=== PATIENT | female | born 1940 | race Caucasian/White ===

== ENCOUNTER 2021-05-26 13:59 | Inpatient (IN) | payer MEDICARE ==
[2021-05-26 14:25] LABS: Actual Bicarbonate (HCO3a) 24.5 mEq/L (22-28); Analyzer IN Cardio ER; Base Excess (BEa) 1.7 mEq/L (-2.0 to +3.0); CO2 Tension 33.4 mmHg (35.0-45.0); Calcium, Ionized (arterial) 1.22 mmol/L (1.12-1.30); Carboxyhemoglobin (COHb) 2.5 gm% (0.0-3.0); Hemoglobin (Hb) 15.2 g/dL (12.0-16.0); Potassium - ABG Lab 4.68 mmol/L (3.70-5.30); pH, Arterial 7.48 (7.35-7.45)
[2021-05-26 14:26] LABS: Puncture Site RRA
[2021-05-26 15:14] LABS: Hemoglobin 14.9 g/dL (12.0-16.0); Mean Corpuscular HGB CONC 33.1 g/dL (32.0-36.0); Mean Corpuscular Hemoglobin 30.3 pg (27.0-31.0); Mean Corpuscular Volume 91.5 fL (78.0-98.0); Red Blood Cell (RBC) Count 4.93 mill/uL (4.20-5.40)
[2021-05-26 15:34] LABS: ALT (SGPT) 24 U/L (8-55); AST (SGOT) 106 U/L (5-34); Albumin 3.1 g/dL (3.4-4.8); Alkaline Phosphatase 56 U/L (40-110); Anion Gap 21 mmol/L (10-20); BUN (Urea Nitrogen) 77 mg/dL (9.8-20.1); Bilirubin, Total 1.6 mg/dL (0.2-1.2); CK (CPK) 173 U/L (29-168); Calc. Creatinine Clearance 0 mL/min (70-130); Calcium 8.3 mg/dL (7.8-10.44); Carbon Dioxide 23 mmol/L (23-31); Chloride 108 mmol/L (98-107); Globulin 3.4 g/dL (2.4-3.5); Glucose 139 mg/dL (83-110); Potassium 5.6 mmol/L (3.5-5.1); Protein, Total 6.5 g/dL (5.8-8.1); Sodium 146 mmol/L (136-145)
[2021-05-26 15:37] LABS: Anisocytosis SLIGHT = 6-15 cells (100X) (0-5/hpf); Band 30 % (5-11); Eosinophils 1 % (0-10); Lymphocytes 2 % (21-51); MDiff Complete? YES; Mean Platelet Volume 9.9 fL (7.4-10.4); Monocytes 3 % (0-10); Neutrophil 60 % (42-75); Nucleated RBC 12 % (0); Platelet Count 78 thou/uL (130-400); Platelet Morphology Comment Appears Decreased; Polychromasia MODERATE = 3-4 cells (100X) (0-2/hpf); Reactive Lymphocytes 4 % (0-10); White Blood Cell (WBC) Count 16.3 thou/uL (4.8-10.8)
[2021-05-26 15:50] LABS: CKMB 1.6 ng/mL (0-6.6)
[2021-05-26] MEDS ORDERED: Senokot S 8.6-50 MG TAB PO PRN (17:33)
[2021-05-26] MEDS ORDERED: Acetaminophen 325 MG TAB PO PRN (17:33)
[2021-05-26] MEDS ORDERED: Ondansetron PF 4 MG/2 ML Vial IVP PRN (17:33)
[2021-05-26] MEDS ORDERED: Dexamethasone 10 MG/ML VIAL ONE (18:07)
[2021-05-26] MEDS ORDERED: Albuterol 200 PUFF (6.7GM INHALER) INH PRN (18:26)
[2021-05-26 18:42] LABS: Troponin I 0.165 ng/mL (< 0.028)
[2021-05-26] MEDS ORDERED: Sodium Chloride 0.9% (PF) 10 ML VIAL FS PRN (18:45)
[2021-05-26] MEDS ORDERED: Enoxaparin Sodium 100 MG/ML SYRINGE SC SCH (19:30)
[2021-05-26] MEDS ORDERED: hydrALAZINE 20 MG/ML VIAL SLOW IVP SCH (21:30)
[2021-05-26] MEDS ORDERED: hydrALAZINE 20 MG/ML VIAL ONE (21:50)
[2021-05-26] MEDS: Dexamethasone 10 MG/ML VIAL SLOW IVP SCH (23:14)
[2021-05-26 23:17] LABS: SARS-CoV-2 NAA Rapid Test DETECTED (NotDetected)
[2021-05-26] MEDS ORDERED: cefTRIAXone\\ROCEPHIN 1 GM VIAL ONE (23:22)
[2021-05-26] MEDS ORDERED: Azithromycin 500 MG VIAL ONE (23:22)
[2021-05-26] MEDS ORDERED: Pantoprazole 40 MG VIAL ONE (23:22)
[2021-05-26] MEDS ORDERED: Enoxaparin Sodium 40 MG/0.4 ML SYRINGE ONE (23:22)
[2021-05-26] MEDS: cefTRIAXone\\ROCEPHIN 1 GM in Sodium Chloride 0.9% 100 ML IVPB SCH (23:25)
[2021-05-26] MEDS: Pantoprazole 40 MG VIAL IVP SCH (23:25)
[2021-05-26] MEDS: Azithromycin 500 MG in Sodium Chloride 0.9% 250 ML 250 ML IVPB SCH (23:25)
[2021-05-26 23:26] LABS: Anion Gap 18 mmol/L (10-20); BUN (Urea Nitrogen) 82 mg/dL (9.8-20.1); Calc. Creatinine Clearance 0 mL/min (70-130); Calcium 8.2 mg/dL (7.8-10.44); Carbon Dioxide 23 mmol/L (23-31); Chloride 110 mmol/L (98-107); Glucose 185 mg/dL (83-110); Potassium 4.9 mmol/L (3.5-5.1); Sodium 146 mmol/L (136-145)
[2021-05-26 23:30] LABS: Troponin I 0.168 ng/mL (< 0.028)
[2021-05-26] MEDS ORDERED: Enoxaparin Sodium 100 MG/ML SYRINGE ONE (23:40)
[2021-05-26] MEDS: Sodium Chloride 0.9% 1,000 ML IV SCH (23:45)
[2021-05-27 03:26] VITALS: BMI 28.3
[2021-05-27 04:43] LABS: ALT (SGPT) 37 U/L (8-55); AST (SGOT) 82 U/L (5-34); Albumin 2.6 g/dL (3.4-4.8); Alkaline Phosphatase 49 U/L (40-110); Anion Gap 18 mmol/L (10-20); BUN (Urea Nitrogen) 92 mg/dL (9.8-20.1); Bilirubin, Total 1.3 mg/dL (0.2-1.2); Calc. Creatinine Clearance 13 mL/min (70-130); Calcium 7.7 mg/dL (7.8-10.44); Carbon Dioxide 21 mmol/L (23-31); Chloride 113 mmol/L (98-107); Globulin 2.9 g/dL (2.4-3.5); Glucose 178 mg/dL (83-110); Protein, Total 5.5 g/dL (5.8-8.1); Sodium 147 mmol/L (136-145)
[2021-05-27 06:08] LABS: Band 14 % (5-11); Hemoglobin 13.7 g/dL (12.0-16.0); Lymphocytes 4 % (21-51); MDiff Complete? YES; Mean Corpuscular HGB CONC 33.2 g/dL (32.0-36.0); Mean Corpuscular Hemoglobin 30.5 pg (27.0-31.0); Mean Corpuscular Volume 91.7 fL (78.0-98.0); Mean Platelet Volume 6.9 fL (7.4-10.4); Monocytes 2 % (0-10); Myelocyte 1 % (0-0); Neutrophil 79 % (42-75); Platelet Count 61 thou/uL (130-400); Platelet Morphology Comment Appears Decreased; Polychromasia SLIGHT = 2-3 cells (100X) (0-2/hpf); RBC Distribution Width 14.8 % (11.5-14.5); Schistocytes SLIGHT = 2-5 cells (100X) (0-1/hpf); White Blood Cell (WBC) Count 19.8 thou/uL (4.8-10.8)
[2021-05-27] MEDS: Dexamethasone 10 MG/ML VIAL SLOW IVP SCH ×2 (07:22→19:19)
[2021-05-27] MEDS: Sodium Chloride 0.9% 1,000 ML IV SCH (08:21)
[2021-05-27] MEDS ORDERED: Pantoprazole 40 MG VIAL IVP SCH (09:00)
[2021-05-27] MEDS ORDERED: Sodium Bicarbonate 50 MEQ in Dextrose 5% in Water 1,000 ML IV SCH ×2 (13:30→17:57)
[2021-05-27 15:05] LABS: Bacteria/HPF 4+ HPF (None Seen); Bilirubin Negative (Negative); Blood, Urine 2+ (Negative); Clarity Extra Turbid (Clear); Glucose, Urine (Dipstick) Normal (Negative); Ketone, Urine Negative (Negative); Leukocyte 500 Leu/uL (Negative); Nitrite 1+ (Negative); Protein, Urine (Dipstick) 300 mg/dL (Neg-Trace); RBC/HPF Greater than 50 HPF (0-3); Specific Gravity, Urine 1.012 (1.002-1.036); Squamous Epithelial 0-3 HPF (0-3); Urobilinogen Normal mg/dL (Less than 2); WBC/HPF Greater than 50 HPF (0-3)
[2021-05-27 15:09] LABS: Urine Culture Reflex Yes Yes
[2021-05-27 15:20] LABS: Creatinine, Urine Less than 20.00 mg/dL (47-110); Sodium, Urine 121 mmol/L (Not Available); Urea Nitrogen, Random Urine 107 mg/dl
[2021-05-27 15:34] LABS: Anion Gap 17 mmol/L (10-20); BUN (Urea Nitrogen) 96 mg/dL (9.8-20.1); Calc. Creatinine Clearance 10 mL/min (70-130); Calcium 7.4 mg/dL (7.8-10.44); Carbon Dioxide 22 mmol/L (23-31); Chloride 113 mmol/L (98-107); Glucose 199 mg/dL (83-110); Potassium 5.1 mmol/L (3.5-5.1); Sodium 147 mmol/L (136-145)
[2021-05-27 16:52] LABS: Protein, Urine Random Quant 927 mg/dL (1-14)
[2021-05-27] MEDS ORDERED: Non-Formulary Item 1 EACH (Tiotropium Bromide [Spiriva] 18 MCG Cap.W.Dev) IH PRN (18:09)
[2021-05-27] MEDS: Aspirin 81 mg Enteric Coated Tablet PO SCH (19:19)
[2021-05-27] MEDS: cefTRIAXone\\ROCEPHIN 1 GM in Sodium Chloride 0.9% 100 ML IVPB SCH (20:11)
[2021-05-27] MEDS: Azithromycin 500 MG in Sodium Chloride 0.9% 250 ML 250 ML IVPB SCH (20:11)
[2021-05-27] MEDS: Pantoprazole 40 MG VIAL IVP SCH (20:12)
[2021-05-27 22:53] LABS: Albumin 2.5 g/dL (3.4-4.8); Anion Gap 18 mmol/L (10-20); BUN (Urea Nitrogen) 99 mg/dL (9.8-20.1); BUN/Creatinine Ratio 18.89; Calc. Creatinine Clearance 10 mL/min (70-130); Carbon Dioxide 22 mmol/L (23-31); Chloride 109 mmol/L (98-107); Glucose 279 mg/dL (83-110); Phosphorus 4.5 mg/dL (2.3-4.7); Potassium 4.9 mmol/L (3.5-5.1); Sodium 144 mmol/L (136-145)
[2021-05-28 04:20] LABS: Hemoglobin 12.4 g/dL (12.0-16.0); Mean Corpuscular HGB CONC 31.6 g/dL (32.0-36.0); Mean Corpuscular Hemoglobin 29.1 pg (27.0-31.0); Mean Corpuscular Volume 92.1 fL (78.0-98.0); Mean Platelet Volume 8.2 fL (7.4-10.4); Platelet Count 61 thou/uL (130-400); RBC Distribution Width 15.3 % (11.5-14.5); Red Blood Cell (RBC) Count 4.28 mill/uL (4.20-5.40); White Blood Cell (WBC) Count 17.8 thou/uL (4.8-10.8)
[2021-05-28 04:32] LABS: ALT (SGPT) 39 U/L (8-55); AST (SGOT) 51 U/L (5-34); Albumin 2.7 g/dL (3.4-4.8); Alkaline Phosphatase 45 U/L (40-110); Anion Gap 18 mmol/L (10-20); BUN (Urea Nitrogen) 103 mg/dL (9.8-20.1); Bilirubin, Total 0.8 mg/dL (0.2-1.2); Calc. Creatinine Clearance 9 mL/min (70-130); Calcium 7.1 mg/dL (7.8-10.44); Carbon Dioxide 21 mmol/L (23-31); Chloride 105 mmol/L (98-107); Globulin 2.7 g/dL (2.4-3.5); Glucose 297 mg/dL (83-110); Potassium 4.5 mmol/L (3.5-5.1); Protein, Total 5.4 g/dL (5.8-8.1); Sodium 139 mmol/L (136-145)
[2021-05-28] MEDS: Levothyroxine Sodium 112 MCG TAB PO SCH (04:56)
[2021-05-28] MEDS: Levothyroxine Sodium 25 MCG TAB PO SCH (04:57)
[2021-05-28] MEDS ORDERED: Sodium Bicarbonate 150 MEQ in Dextrose 5% in Water 1,000 ML IV SCH (05:00)
[2021-05-28 05:44] LABS: Anisocytosis SLIGHT = 6-15 cells (100X) (0-5/hpf); Band 10 % (5-11); Lymphocytes 3 % (21-51); MDiff Complete? YES; Monocytes 4 % (0-10); Neutrophil 83 % (42-75); Platelet Morphology Comment Appears Decreased; Polychromasia SLIGHT = 2-3 cells (100X) (0-2/hpf)
[2021-05-28] MEDS: Dexamethasone 10 MG/ML VIAL SLOW IVP SCH ×2 (07:54→17:04)
[2021-05-28] MEDS: Atorvastatin Calcium 10 MG TAB PO SCH (07:55)
[2021-05-28] MEDS: Aspirin 81 mg Enteric Coated Tablet PO SCH (07:55)
[2021-05-28] MEDS ORDERED: Lantus 1000 UNITS/10 ML VIAL SC SCH ×2 (10:45→21:00)
[2021-05-28 17:56] LABS: Albumin 2.5 g/dL (3.4-4.8); Anion Gap 18 mmol/L (10-20); BUN (Urea Nitrogen) 109 mg/dL (9.8-20.1); BUN/Creatinine Ratio 17.84; Calc. Creatinine Clearance 8 mL/min (70-130); Carbon Dioxide 24 mmol/L (23-31); Chloride 102 mmol/L (98-107); Glucose 257 mg/dL (83-110); Phosphorus 4.6 mg/dL (2.3-4.7); Potassium 4.6 mmol/L (3.5-5.1); Sodium 139 mmol/L (136-145)
[2021-05-28] MEDS: cefTRIAXone\\ROCEPHIN 1 GM in Sodium Chloride 0.9% 100 ML IVPB SCH (19:57)
[2021-05-28] MEDS: Pantoprazole 40 MG VIAL IVP SCH (20:00)
[2021-05-28] MEDS: Azithromycin 500 MG in Sodium Chloride 0.9% 250 ML 250 ML IVPB SCH (20:01)
[2021-05-29 04:21] LABS: ALT (SGPT) 31 U/L (8-55); AST (SGOT) 51 U/L (5-34); Albumin 2.6 g/dL (3.4-4.8); Alkaline Phosphatase 45 U/L (40-110); Anion Gap 19 mmol/L (10-20); Calc. Creatinine Clearance 8 mL/min (70-130); Carbon Dioxide 24 mmol/L (23-31); Chloride 102 mmol/L (98-107); Globulin 2.7 g/dL (2.4-3.5); Glucose 177 mg/dL (83-110); Magnesium 2.6 mg/dL (1.6-2.6); Protein, Total 5.3 g/dL (5.8-8.1); Sodium 140 mmol/L (136-145)
[2021-05-29 04:27] LABS: Band 5 % (5-11); Hemoglobin 12.5 g/dL (12.0-16.0); Lymphocytes 7 % (21-51); MDiff Complete? YES; Mean Corpuscular HGB CONC 33.2 g/dL (32.0-36.0); Mean Corpuscular Volume 90.5 fL (78.0-98.0); Mean Platelet Volume 10.9 fL (7.4-10.4); Monocytes 11 % (0-10); Neutrophil 77 % (42-75); Nucleated RBC 1 % (0); Platelet Count 49 thou/uL (130-400); Platelet Morphology Comment Appears Decreased; RBC Distribution Width 16.1 % (11.5-14.5); RBC Morphology Normal; Red Blood Cell (RBC) Count 4.17 mill/uL (4.20-5.40)
[2021-05-29 04:33] LABS: BUN (Urea Nitrogen) 113 mg/dL (9.8-20.1)
[2021-05-29] MEDS: Levothyroxine Sodium 112 MCG TAB PO SCH (05:38)
[2021-05-29] MEDS: Levothyroxine Sodium 25 MCG TAB PO SCH (05:38)
[2021-05-29] MEDS: Dexamethasone 10 MG/ML VIAL SLOW IVP SCH ×3 (05:38→17:52)
[2021-05-29] MEDS: Lantus 1000 UNITS/10 ML VIAL SC SCH ×2 (08:00→20:42)
[2021-05-29] MEDS: Aspirin 81 mg Enteric Coated Tablet PO SCH (08:07)
[2021-05-29] MEDS: Atorvastatin Calcium 10 MG TAB PO SCH (08:07)
[2021-05-29] MEDS: Albumin 25% 25 GM/100 ML BOT IVPB SCH ×3 (10:23→22:18)
[2021-05-29] MEDS: Sodium Bicarbonate 50 MEQ in Sodium Chloride 0.45% 1,000 ML IV SCH ×2 (10:33→19:02)
[2021-05-29 19:19] LABS: Urine Total Volume 35 mL (250-2400)
[2021-05-29] MEDS: cefTRIAXone\\ROCEPHIN 1 GM in Sodium Chloride 0.9% 100 ML IVPB SCH (19:49)
[2021-05-29 20:00] LABS: Protein - 24 Hr 113 mg/24 hr (Less than 300); Protein, Urine 323 mg/dL (1-14)
[2021-05-29] MEDS: Azithromycin 500 MG in Sodium Chloride 0.9% 250 ML 250 ML IVPB SCH (20:42)
[2021-05-29] MEDS: Pantoprazole 40 MG VIAL IVP SCH (20:42)
[2021-05-30] MEDS: Sodium Bicarbonate 50 MEQ in Sodium Chloride 0.45% 1,000 ML IV SCH (02:03)
[2021-05-30] MEDS: Dexamethasone 10 MG/ML VIAL SLOW IVP SCH ×2 (06:12→17:46)
[2021-05-30] MEDS: Levothyroxine Sodium 25 MCG TAB PO SCH (06:12)
[2021-05-30] MEDS: Levothyroxine Sodium 112 MCG TAB PO SCH (06:12)
[2021-05-30 06:23] LABS: Platelet Count 39 thou/uL (130-400)
[2021-05-30 06:32] LABS: INR-International Normal Ratio 1.7; Prothrombin Time 20.1 sec (12.0-14.7)
[2021-05-30 06:37] LABS: FSP-Qualitative ABNORMAL (Normal); FSP-Semiquantitative >=160 & <320 mcg/mL (Less than 5)
[2021-05-30 06:43] LABS: ALT (SGPT) 28 U/L (8-55); AST (SGOT) 42 U/L (5-34); Albumin 3.3 g/dL (3.4-4.8); Alkaline Phosphatase 36 U/L (40-110); Anion Gap 21 mmol/L (10-20); Bilirubin, Total 1.1 mg/dL (0.2-1.2); Calc. Creatinine Clearance 7 mL/min (70-130); Calcium 6.6 mg/dL (7.8-10.44); Carbon Dioxide 23 mmol/L (23-31); Chloride 100 mmol/L (98-107); Globulin 2.2 g/dL (2.4-3.5); Glucose 190 mg/dL (83-110); Magnesium 2.6 mg/dL (1.6-2.6); Potassium 4.9 mmol/L (3.5-5.1); Protein, Total 5.5 g/dL (5.8-8.1); Sodium 139 mmol/L (136-145)
[2021-05-30 06:45] LABS: Fibrinogen 72 mg/dL (253-463)
[2021-05-30 06:47] LABS: Anisocytosis SLIGHT = 6-15 cells (100X) (0-5/hpf); Band 4 % (5-11); Bite Cells SLIGHT = 2-5 cells (100X) (0-1/hpf); Hemoglobin 11.4 g/dL (12.0-16.0); Lymphocytes 8 % (21-51); MDiff Complete? YES; Mean Corpuscular HGB CONC 33.8 g/dL (32.0-36.0); Mean Corpuscular Volume 91.8 fL (78.0-98.0); Mean Platelet Volume 12.7 fL (7.4-10.4); Metamyelocyte 1 % (0-0); Monocytes 5 % (0-10); Myelocyte 2 % (0-0); Neutrophil 80 % (42-75); Nucleated RBC 1 % (0); Platelet Count 37 thou/uL (130-400); Platelet Morphology Comment Appears Decreased; RBC Distribution Width 17.3 % (11.5-14.5); Red Blood Cell (RBC) Count 3.67 mill/uL (4.20-5.40); Schistocytes SLIGHT = 2-5 cells (100X) (0-1/hpf); Spherocytes SLIGHT = 1-5 cells (100X) (None Seen)
[2021-05-30 06:51] LABS: D-Dimer Test Greater than 20.00 *mcg/mL (0.27-0.43)
[2021-05-30 06:54] LABS: BUN (Urea Nitrogen) 125 mg/dL (9.8-20.1)
[2021-05-30] MEDS: Aspirin 81 mg Enteric Coated Tablet PO SCH (09:12)
[2021-05-30] MEDS: Atorvastatin Calcium 10 MG TAB PO SCH (09:13)
[2021-05-30] MEDS: Lantus 1000 UNITS/10 ML VIAL SC SCH ×2 (09:13→21:50)
[2021-05-30] MEDS ORDERED: Heparin 10,000 UNITS/ 10 ML VIAL ONE (09:27)
[2021-05-30] MEDS ORDERED: Lidocaine 1% w/Epinephrine 1:100K 20 ML VIAL ONE (09:31)
[2021-05-30] MEDS ORDERED: hydrALAZINE 20 MG/ML VIAL SLOW IVP PRN (12:01)
[2021-05-30] MEDS ORDERED: Carvedilol 25 MG TAB PO SCH ×2 (12:45→21:00)
[2021-05-30 12:46] VITALS: BP 189/88
[2021-05-30 13:12] LABS: HBSAB Concentration Less than 8.00 mIU/mL; Hep B Core Total Ab Non-Reactive (NonReactive); Hep B Core Total Index 0.07 S/CO (0-0.79); Hep B Surf AB Non-Reactive (NonReactive); Hep B Surf Ag Non-Reactive S/CO (NonReactive); Hep C IgG Ab Non-Reactive (NonReactive)
[2021-05-30] MEDS ORDERED: Albumin 25% 200 ML ONE (14:58)
[2021-05-30] MEDS ORDERED: Albumin 25% 25 GM/100 ML BOT IVPB SCH ×2 (16:00→18:15)
[2021-05-30] MEDS: Pantoprazole 40 MG VIAL IVP SCH (19:59)
[2021-05-30] MEDS: cefTRIAXone\\ROCEPHIN 1 GM in Sodium Chloride 0.9% 100 ML IVPB SCH (19:59)
[2021-05-30] MEDS: Azithromycin 500 MG in Sodium Chloride 0.9% 250 ML 250 ML IVPB SCH (21:48)
[2021-05-30 22:30] LABS: Phosphorus 7.9 mg/dL (2.3-4.7)
[2021-05-31] MEDS: Levothyroxine Sodium 112 MCG TAB PO SCH (05:32)
[2021-05-31] MEDS: Levothyroxine Sodium 25 MCG TAB PO SCH (05:32)
[2021-05-31] MEDS: Dexamethasone 10 MG/ML VIAL SLOW IVP SCH ×2 (05:33→18:21)
[2021-05-31] MEDS ORDERED: Sodium Chloride 0.9% 1,000 ML IV SCH (08:45)
[2021-05-31 09:31] LABS: Prothrombin Time 23.1 sec (12.0-14.7)
[2021-05-31 09:47] LABS: Mean Corpuscular HGB CONC 34.8 g/dL (32.0-36.0); Mean Corpuscular Hemoglobin 31.7 pg (27.0-31.0); Mean Platelet Volume 8.6 fL (7.4-10.4); Platelet Count 52 thou/uL (130-400); RBC Distribution Width 18.3 % (11.5-14.5); Red Blood Cell (RBC) Count 1.58 mill/uL (4.20-5.40); White Blood Cell (WBC) Count 13.6 thou/uL (4.8-10.8)
[2021-05-31] MEDS ORDERED: Albumin 25% 25 GM/100 ML BOT IVPB SCH (10:00)
[2021-05-31] MEDS: Atorvastatin Calcium 10 MG TAB PO SCH (10:04)
[2021-05-31 10:25] LABS: ALT (SGPT) 17 U/L (8-55); AST (SGOT) 20 U/L (5-34); Albumin 3.7 g/dL (3.4-4.8); Alkaline Phosphatase 19 U/L (40-110); Anion Gap 23 mmol/L (10-20); Bilirubin, Total 0.7 mg/dL (0.2-1.2); Calc. Creatinine Clearance 7 mL/min (70-130); Calcium 6.6 mg/dL (7.8-10.44); Carbon Dioxide 22 mmol/L (23-31); Chloride 103 mmol/L (98-107); Globulin 1.4 g/dL (2.4-3.5); Glucose 180 mg/dL (83-110); Magnesium 2.7 mg/dL (1.6-2.6); Phosphorus 8.2 mg/dL (2.3-4.7); Potassium 5.4 mmol/L (3.5-5.1); Protein, Total 5.1 g/dL (5.8-8.1); Sodium 143 mmol/L (136-145)
[2021-05-31 10:37] LABS: BUN (Urea Nitrogen) 142 mg/dL (9.8-20.1)
[2021-05-31] MEDS: Lantus 1000 UNITS/10 ML VIAL SC SCH ×2 (12:52→21:38)
[2021-05-31] MEDS ORDERED: Dextrose 50% Abboject 50 ML SYRINGE SLOW IVP STA (15:06)
[2021-05-31] MEDS ORDERED: Insulin Regular 300 UNITS/3 ML VIAL IVP STA (15:06)
[2021-05-31 19:56] LABS: Hemoglobin 5.5 g/dL (12.0-16.0); Platelet Count 62 thou/uL (130-400)
[2021-05-31] MEDS: cefTRIAXone\\ROCEPHIN 1 GM in Sodium Chloride 0.9% 100 ML IVPB SCH (21:23)
[2021-05-31] MEDS: Pantoprazole 40 MG VIAL IVP SCH (21:24)
[2021-06-01 00:55] VITALS: TEMP 98.1
[2021-06-01 03:02] LABS: Hemoglobin 7.6 g/dL (12.0-16.0); Mean Corpuscular Hemoglobin 32.2 pg (27.0-31.0); Mean Corpuscular Volume 89.4 fL (78.0-98.0); Mean Platelet Volume 11.9 fL (7.4-10.4); Platelet Count 80 thou/uL (130-400); RBC Distribution Width 14.8 % (11.5-14.5); Red Blood Cell (RBC) Count 2.36 mill/uL (4.20-5.40); White Blood Cell (WBC) Count 16.4 thou/uL (4.8-10.8)
[2021-06-01 03:20] LABS: ALT (SGPT) 26 U/L (8-55); AST (SGOT) 25 U/L (5-34); Albumin 3.8 g/dL (3.4-4.8); Alkaline Phosphatase 30 U/L (40-110); Anion Gap 25 mmol/L (10-20); Bilirubin, Total 0.7 mg/dL (0.2-1.2); Calc. Creatinine Clearance 7 mL/min (70-130); Calcium 6.5 mg/dL (7.8-10.44); Carbon Dioxide 23 mmol/L (23-31); Chloride 104 mmol/L (98-107); Globulin 1.9 g/dL (2.4-3.5); Glucose 212 mg/dL (83-110); Protein, Total 5.7 g/dL (5.8-8.1); Sodium 147 mmol/L (136-145)
[2021-06-01 03:24] LABS: Anisocytosis SLIGHT = 6-15 cells (100X) (0-5/hpf); Band 2 % (5-11); Lymphocytes 9 % (21-51); MDiff Complete? YES; Monocytes 5 % (0-10); Myelocyte 2 % (0-0); Neutrophil 79 % (42-75); Platelet Morphology Comment Appears Decreased; Polychromasia SLIGHT = 2-3 cells (100X) (0-2/hpf); Reactive Lymphocytes 3 % (0-10)
[2021-06-01 03:33] LABS: BUN (Urea Nitrogen) 152 mg/dL (9.8-20.1)
[2021-06-01] MEDS ORDERED: Azithromycin 500 MG in Sodium Chloride 0.9% 250 ML 250 ML IVPB SCH (04:00)
[2021-06-01] MEDS: Azithromycin 500 MG in Sodium Chloride 0.9% 250 ML 250 ML IVPB SCH (05:08)
[2021-06-01] MEDS: Dexamethasone 10 MG/ML VIAL SLOW IVP SCH (05:47)
[2021-06-01 14:37] LABS: Albumin, PEP 24hr Ur 63.1 % (NOT ESTAB.); Alpha-1-Globulin, PEP 24h Ur 4.3 % (NOT ESTAB.); Alpha-2-Globulin, PEP 24h Ur 7.3 % (NOT ESTAB.); Beta Globulin, PEP 24h Ur 16.1 % (NOT ESTAB.); Gamma Globulin, PEP 24h Ur 9.2 % (NOT ESTAB.); M-Spike,% PEP 24hr Ur Not Observed % (Not Observed); Protein, PEP 24hr calculated 103 mg/24 hr (30-150); Protein, Urine 293.5 mg/dL (Not Estab.)
== END 2021-06-01 11:47 | disposition expired | DRG 871 ==
LOC: SUATTDRO 13:59 → ERS 13:59 → ERHOLD 17:06 → IMCU/EMU 05-27 02:26
PROVIDERS: ADMIT Internal Medicine; ATTEND Internal Medicine
PROC: 8E0ZXY6 Isolation (ICD-10-PCS; principal; 2021-05-26)
PROC: 3E0333Z Introduction of Anti-inflammatory into Peripheral Vein, Percutaneous Approach (ICD-10-PCS; 2021-05-26)
PROC: 5A09457 Assistance with Respiratory Ventilation, 24-96 Consecutive Hours, Continuous Positive Airway Pressure (ICD-10-PCS; 2021-05-26)
PROC: 06HY33Z Insertion of Infusion Device into Lower Vein, Percutaneous Approach (ICD-10-PCS; 2021-05-30)
PROC: 5A1D70Z Performance of Urinary Filtration, Intermittent, Less than 6 Hours Per Day (ICD-10-PCS; 2021-05-30)
PROC: 30233R1 Transfusion of Nonautologous Platelets into Peripheral Vein, Percutaneous Approach (ICD-10-PCS; 2021-05-30)
PROC: 30233L1 Transfusion of Nonautologous Fresh Plasma into Peripheral Vein, Percutaneous Approach (ICD-10-PCS; 2021-05-31)
PROC: 30233N1 Transfusion of Nonautologous Red Blood Cells into Peripheral Vein, Percutaneous Approach (ICD-10-PCS; 2021-05-31)
PROC: 30233K1 Transfusion of Nonautologous Frozen Plasma into Peripheral Vein, Percutaneous Approach (ICD-10-PCS; 2021-05-31)
DX: A41.89 Other specified sepsis (principal); U07.1 COVID-19; J96.01 Acute respiratory failure with hypoxia; J12.82 Pneumonia due to coronavirus disease 2019; J15.9 Unspecified bacterial pneumonia; N17.0 Acute kidney failure with tubular necrosis; J44.0 Chronic obstructive pulmonary disease with (acute) lower respiratory infection; E87.1 Hypo-osmolality and hyponatremia; I24.8 Other forms of acute ischemic heart disease; E87.2 Acidosis; D62 Acute posthemorrhagic anemia; T82.838A Hemorrhage due to vascular prosthetic devices, implants and grafts, initial encounter; Z51.5 Encounter for palliative care; Z66 Do not resuscitate; I12.9 Hypertensive chronic kidney disease with stage 1 through stage 4 chronic kidney disease, or unspecified chronic kidney disease; E78.5 Hyperlipidemia, unspecified; I25.10 Atherosclerotic heart disease of native coronary artery without angina pectoris; N18.9 Chronic kidney disease, unspecified; D69.6 Thrombocytopenia, unspecified; E87.5 Hyperkalemia; E86.0 Dehydration; Z95.5 Presence of coronary angioplasty implant and graft; Z78.1 Physical restraint status; Z88.1 Allergy status to other antibiotic agents; Z88.0 Allergy status to penicillin; Z91.030 Bee allergy status; E11.22 Type 2 diabetes mellitus with diabetic chronic kidney disease; R65.20 Severe sepsis without septic shock; E11.51 Type 2 diabetes mellitus with diabetic peripheral angiopathy without gangrene; I95.3 Hypotension of hemodialysis; I95.2 Hypotension due to drugs; Y84.1 Kidney dialysis as the cause of abnormal reaction of the patient, or of later complication, without mention of misadventure at the time of the procedure; T50.905A Adverse effect of unspecified drugs, medicaments and biological substances, initial encounter; Z79.82 Long term (current) use of aspirin; Z79.890 Hormone replacement therapy; Z79.899 Other long term (current) drug therapy
CPT/HCPCS: 36415; 36416; 36430; 36600; 71045; 71250; 74019; 74177; 76770; 80053; 81001; 82550; 82553; 82570; 82805; 83735; 84100; 84156; 84166; 84300; 84484; 84540; 85025; 85027; 85049; 85300; 85362; 85379; 85384; 85610; 85730; 86140; 86704; 86706; 86803; 86850; 86900; 86901; 87040; 87077; 87086; 87186; 87340; 90935; 93005; 94660; 96374; C9113; G0257; J0360; J0456; J0696; J1100; J1644; J1650; J1815; J3490; J7050; J7070; J7620; P9016; P9035; P9047; P9059; U0002